=== PATIENT | male | born 1955 | race Caucasian/White ===

== ENCOUNTER 2016-03-26 13:16 | Inpatient (IN) | payer OTHER ==
[2016-03-26] MEDS ORDERED: hydrALAZINE INJ 20 MG/ML VIAL IVP STA (13:36)
[2016-03-26] MEDS ORDERED: hydrALAZINE INJ 20 MG/ML VIAL ONE (13:52)
[2016-03-26] MEDS ORDERED: ACETAMINOPHEN 325 MG TABLET PO PRN (15:47)
[2016-03-26] MEDS ORDERED: ONDANSETRON 4 MG/2 ML VIAL IVP PRN (15:47)
[2016-03-26] MEDS ORDERED: SODIUM CHLORIDE FLUSH 0.9% 10 ML SYRINGE IVP PRN (15:47)
[2016-03-26] MEDS ORDERED: PROPOFOL 1000 MG/100 ML 100 ML IV ONE (15:58)
[2016-03-26] MEDS ORDERED: DIPHENHYDRAMINE IV SCH (16:00)
[2016-03-26] MEDS ORDERED: SODIUM CHLORIDE 0.9% IV SCH (16:00)
[2016-03-26] MEDS ORDERED: IPRATROPIUM/ALBUTEROL 3 ML NEB INH PRN (16:42)
[2016-03-26] MEDS: methylPREDNISolone SUCCINATE 125 MG/2 ML VIAL IVP SCH ×2 (16:54→22:18)
[2016-03-26] MEDS: diphenhydrAMINE INJ 50 MG/ML VIAL IVP SCH ×2 (16:54→23:59)
[2016-03-26] MEDS ORDERED: DEXTROSE GEL 37.5 GM TUBE PO PRN (16:56)
[2016-03-26] MEDS ORDERED: DEXTROSE 50% ABBOJECT 25 GM/50 ML SYRINGE IVP PRN (16:56)
[2016-03-26] MEDS ORDERED: GLUCAGON 1 MG/ML VIAL SUBQ PRN (16:56)
[2016-03-26] MEDS ORDERED: DEXTROSE 5% 1,000 ML IV PRN (16:56)
[2016-03-26] MEDS: PROPOFOL 1000 MG/100 ML 100 ML IV SCH ×4 (16:59→22:35)
[2016-03-26] MEDS: MORPHINE 2 MG/ML SYRINGE IVP PRN (17:08)
[2016-03-26] MEDS: SODIUM CHLORIDE 0.9% 1,000 ML IV SCH (17:47)
[2016-03-26] MEDS: MIDAZOLAM 2 MG/2 ML VIAL IVP PRN ×2 (17:59→22:40)
[2016-03-26] MEDS: INSULIN REGULAR HUMAN 100 UNIT/1 ML 10 ML MDV SUBQ SCH (18:09)
[2016-03-26] MEDS ORDERED: FAMOTIDINE 20 MG in SODIUM CHLORIDE 0.9% 50 ML IV SCH (21:00)
[2016-03-26] MEDS ORDERED: INSULIN GLARGINE 300 UNIT/3 ML PEN SUBQ SCH (21:00)
[2016-03-26] MEDS: FAMOTIDINE 20 MG/50 ML 50 ML IV SCH (21:04)
[2016-03-26] MEDS: CHLORHEXIDINE GLUCONATE 15 ML UDC PO SCH (21:05)
[2016-03-26] MEDS: SODIUM CHLORIDE FLUSH 0.9% 10 ML SYRINGE IVP SCH (21:43)
[2016-03-27] MEDS: INSULIN REGULAR HUMAN 100 UNIT/1 ML 10 ML MDV SUBQ SCH ×5 (00:04→18:32)
[2016-03-27] MEDS: PROPOFOL 1000 MG/100 ML 100 ML IV SCH ×7 (01:30→23:23)
[2016-03-27] MEDS: SODIUM CHLORIDE 0.9% 1,000 ML IV SCH ×3 (01:31→19:30)
[2016-03-27] MEDS: MIDAZOLAM 2 MG/2 ML VIAL IVP PRN ×3 (02:07→06:48)
[2016-03-27] MEDS: MORPHINE 2 MG/ML SYRINGE IVP PRN ×4 (02:13→23:58)
[2016-03-27] MEDS ORDERED: PROPOFOL 1000 MG/100 ML 100 ML IV ONE (05:44)
[2016-03-27] MEDS: SODIUM CHLORIDE FLUSH 0.9% 10 ML SYRINGE IVP SCH ×3 (06:19→21:34)
[2016-03-27] MEDS: methylPREDNISolone SUCCINATE 125 MG/2 ML VIAL IVP SCH ×3 (06:29→22:15)
[2016-03-27] MEDS: PANTOPRAZOLE 40 MG VIAL IVP SCH (06:29)
[2016-03-27] MEDS: diphenhydrAMINE INJ 50 MG/ML VIAL IVP SCH ×2 (07:56→17:22)
[2016-03-27] MEDS ORDERED: MAGNESIUM SULFATE 2 GRAM 50 ML IV ONE ×2 (08:07→23:19)
[2016-03-27] MEDS: CHLORHEXIDINE GLUCONATE 15 ML UDC PO SCH ×2 (09:00→20:59)
[2016-03-27] MEDS: FAMOTIDINE 20 MG/50 ML 50 ML IV SCH ×2 (09:18→20:59)
[2016-03-27] MEDS: ENOXAPARIN 40 MG/0.4 ML SYRINGE SUBQ SCH (09:18)
[2016-03-27] MEDS: POLYETHYLENE GLYCOL 3350 17 GM PACKET PO SCH (09:31)
[2016-03-27] MEDS ORDERED: INSULIN GLARGINE 300 UNIT/3 ML PEN SUBQ SCH (21:00)
[2016-03-27] MEDS ORDERED: POTASSIUM PHOSPHATE 21 MMOL in SODIUM CHLORIDE 0.9% 250 ML IV ONE ×2 (23:19→23:50)
[2016-03-27] MEDS ORDERED: POTASSIUM PHOSPHATE 15 MMOL in SODIUM CHLORIDE 0.9% 250 ML IV ONE ×2 (23:19→23:50)
[2016-03-27] MEDS ORDERED: NEUTRA-PHOS 250 MG TABLET PO SCH (23:45)
[2016-03-27] MEDS ORDERED: POTASSIUM CHLORIDE 20 MEQ TABLET PO SCH (23:45)
[2016-03-27] MEDS ORDERED: POTASSIUM CHLOR 10 MEQ/100 ML 100 ML IV SCH ×3 (23:45)
[2016-03-28] MEDS: diphenhydrAMINE INJ 50 MG/ML VIAL IVP SCH ×2 (00:33→08:45)
[2016-03-28] MEDS: INSULIN REGULAR HUMAN 100 UNIT/1 ML 10 ML MDV SUBQ SCH (00:34)
[2016-03-28] MEDS: POTASSIUM PHOSPHATE 21 MMOL in SODIUM CHLORIDE 0.9% 250 ML IV SCH ×2 (02:42→02:43)
[2016-03-28] MEDS: PROPOFOL 1000 MG/100 ML 100 ML IV SCH ×2 (02:44→06:18)
[2016-03-28] MEDS: SODIUM CHLORIDE 0.9% 1,000 ML IV SCH (03:50)
[2016-03-28] MEDS ORDERED: INSULIN REGULAR HUMAN 100 UNIT/1 ML 10 ML MDV SUBQ SCH ×2 (06:00)
[2016-03-28] MEDS: PANTOPRAZOLE 40 MG VIAL IVP SCH (06:05)
[2016-03-28] MEDS: SODIUM CHLORIDE FLUSH 0.9% 10 ML SYRINGE IVP SCH (06:05)
[2016-03-28] MEDS: methylPREDNISolone SUCCINATE 125 MG/2 ML VIAL IVP SCH (06:05)
[2016-03-28] MEDS: FAMOTIDINE 20 MG/50 ML 50 ML IV SCH (08:46)
[2016-03-28] MEDS: CHLORHEXIDINE GLUCONATE 15 ML UDC PO SCH (08:46)
[2016-03-28] MEDS: ENOXAPARIN 40 MG/0.4 ML SYRINGE SUBQ SCH (09:35)
[2016-03-28] MEDS: POLYETHYLENE GLYCOL 3350 17 GM PACKET PO SCH (09:39)
== END 2016-03-28 12:19 | disposition home or self-care (01) | DRG 916 ==
PROC: 5A1945Z Respiratory Ventilation, 24-96 Consecutive Hours (ICD-10-PCS; principal; 2016-03-26)
PROC: 0BH17EZ Insertion of Endotracheal Airway into Trachea, Via Natural or Artificial Opening (ICD-10-PCS; principal; 2016-03-26)
PROC: 30233K1 Transfusion of Nonautologous Frozen Plasma into Peripheral Vein, Percutaneous Approach (ICD-10-PCS; principal; 2016-03-26)
DX: T78.3XXA Angioneurotic edema, initial encounter (principal); D62 Acute posthemorrhagic anemia; T46.4X5A Adverse effect of angiotensin-converting-enzyme inhibitors, initial encounter; I10 Essential (primary) hypertension; E11.65 Type 2 diabetes mellitus with hyperglycemia; E78.5 Hyperlipidemia, unspecified; G47.33 Obstructive sleep apnea (adult) (pediatric); Z79.4 Long term (current) use of insulin; Z79.82 Long term (current) use of aspirin; Z78.1 Physical restraint status; Z87.01 Personal history of pneumonia (recurrent)

== ENCOUNTER 2016-09-09 23:56 | Emergency (ER) | payer OTHER ==
--- NOTE | 2016-09-10 00:45 | ED Physician Documentation ---
PD HPI DYSPNEA - Stated complaint Stated Complaint: DIFF BREATHING - Chief complaint Chief Complaint: Resp - History obtained from History obtained from: Patient - History of Present Illness Timing - onset: Enter time (23:30), Today Timing - details: Abrupt onset Pain level now: 0 Associated symptoms: Cough Recently seen: Not recently seen - Additional information Additional information: shortly after eating dinner, patient had sudden onset dyspnea while at rest associated with cough. Symptoms gradually but completely resolved by the time of ED presentation. Review of Systems Cardiac: reports: Reviewed and negative Respiratory: reports: Dyspnea, Cough. denies: Wheezing GI: reports: Reviewed and negative Skin: denies: Rash PD PAST MEDICAL HISTORY - Past Medical History Past Medical History: Yes Cardiovascular: Hypertension, High cholesterol Respiratory: Sleep apnea, CPAP use, Other Neuro: None Endocrine/Autoimmune: Type 2 diabetes GI: None : None HEENT: None Psych: None Musculoskeletal: None Derm: None Other Past Medical History: empyema - Past Surgical History Past Surgical History: Yes Ortho: Rotator cuff repair Cardiovascular: Other - Present Medications Home Medications: Ambulatory Orders Medication Instructions Recorded Confirmed Amlodipine Besylate [Norvasc] 10 mg PO DAILY 03/26/16 03/26/16 Aspirin [Aspir-Low] 81 mg PO DAILY 03/26/16 03/26/16 Insulin Aspart [NovoLOG] 7 units SUBQ .LUNCH,DINNER 03/26/16 03/26/16 Insulin Glargine [Lantus] 32 units SQ QPM 03/26/16 03/26/16 - Allergies Allergies/Adverse Reactions: Allergies Allergy/AdvReac Type Severity Reaction Status Date / Time lisinopril Allergy Severe RESPIRATORY Verified 09/10/16 00:03 ,ANGIOEDEMA Penicillins Allergy Unknown Verified 09/10/16 00:03 - Social History Does the pt smoke?: No Smoking Status: Never smoker Does the pt drink ETOH?: Yes Does the pt have substance abuse?: No - Immunizations Immunizations are current?: No Immunizations: TDAP >10years/unknown - POLST Patient has POLST: No PD ED PE NORMAL - Vitals Vital signs reviewed: Yes - General General: Alert and oriented X 3, No acute distress, Well developed/nourished - Cardiac Cardiac: RRR, No murmur - Respiratory Respiratory: No respiratory distress, Clear bilaterally - Derm Derm: No rash Results - Vitals Vitals: Oxygen O2 Source Room air - Rads (name of study) chest xray Radiology: Prelim report reviewed, See rad report PD MEDICAL DECISION MAKING - ED course Complexity details: reviewed results, re-evaluated patient, considered differential, d/w patient Departure - Departure Disposition: 01 Home, Self Care Clinical Impression: Dyspnea Condition: Good Instructions: ED Dyspnea Shortness of Breath Follow-Up: Sid Barton DO [Primary Care Provider] - Discharge Date/Time: 09/10/16 02:01
--- NOTE | 2016-09-10 01:33 | XRAY Preliminary Report ---
Exam: XR Chest 2 View PA/LAT IMPRESSION: No consolidation. [facility] SITE ID: [id number]
[2016-09-10 01:59] VITALS: BP 147/88
--- NOTE | 2016-09-10 12:30 | XRAY Report ---
EXAM: CHEST RADIOGRAPHY EXAM DATE: 09/10/2016 01:16 AM. CLINICAL HISTORY: Productive cough. COMPARISON: None. TECHNIQUE: 2 views. FINDINGS: Lungs/Pleura: No focal opacities evident. No pleural effusion. No pneumothorax. Normal volumes. Mediastinum: Heart and mediastinal contours are unremarkable. Other: Postoperative changes in the right rotator cuff area. IMPRESSION: No consolidation. [facility] Referring Provider Line: [phone] SITE ID: [id number]
== END 2016-09-10 02:01 | disposition home or self-care (01) ==
LOC: ED 23:56
DX: R06.00 Dyspnea, unspecified (principal); I10 Essential (primary) hypertension; E11.9 Type 2 diabetes mellitus without complications; Z79.4 Long term (current) use of insulin; Z79.82 Long term (current) use of aspirin
CPT/HCPCS: 71020; 99283

== ENCOUNTER 2017-03-09 14:28 | Outpatient (CLI) | payer OTHER | END 2017-03-09 14:29 | disposition home or self-care (01) | LOC: SC 14:28 | PROVIDERS: ATTEND Nurse Practitioner Family | DX: G47.33 Obstructive sleep apnea (adult) (pediatric) (principal) | CPT/HCPCS: 99212; 99214 ==

== ENCOUNTER 2017-04-14 11:20 | Outpatient (CLI) | payer OTHER | END 2017-04-14 11:21 | disposition home or self-care (01) | LOC: SC 11:20 | PROVIDERS: ATTEND Nurse Practitioner Family | DX: G47.33 Obstructive sleep apnea (adult) (pediatric) (principal) | CPT/HCPCS: 99212; 99214 ==

== ENCOUNTER 2017-05-16 14:58 | Outpatient (CLI) | payer OTHER | END 2017-05-16 14:59 | disposition home or self-care (01) | LOC: SC 14:58 | PROVIDERS: ATTEND Nurse Practitioner Family | DX: G47.33 Obstructive sleep apnea (adult) (pediatric) (principal) | CPT/HCPCS: 99212; 99213 ==

== ENCOUNTER 2017-09-24 07:44 | Outpatient (CLI) | payer OTHER ==
--- NOTE | 2017-09-24 17:21 | MRI Report ---
Procedure Date: 09/23/2017 Accession Number: [id number] / [id number] Procedure: MRI - Brain W/O CPT Code: FULL RESULT: EXAM: MRI BRAIN WITHOUT CONTRAST EXAM DATE: 09/23/2017 08:40 AM. CLINICAL HISTORY: Reported history of amnesia for 2 months. COMPARISON: None. TECHNIQUE: Multiplanar, multisequence T1-weighted and fluid-sensitive MR sequences of the brain were performed. Sequences optimized for routine evaluation. Other: None. IV Contrast: None. FINDINGS: Brain Volume: Normal for age. Parenchyma/Dura: No acute hemorrhage or stroke. No mass effect, midline shift or abnormal subdural fluid collection. There are numerous scattered regions of patchy and nodular abnormal T2 hyperintense signal changes involving the subcortical and deep regions of both cerebral hemispheres. White matter disease is nonspecific but likely contributed to by aging and chronic microangiopathy. Ventricles/Cisterns: No hydrocephalus. No abnormal extra-axial fluid collection or hemorrhage. Orbits: Symmetric and unremarkable. Sella Turcica: No space-occupying mass. The right side of the optic chiasm appears to be elevated by an adjacent arterial loop. IAC: No evidence for a space-occupying mass or asymmetry allowing for the inherent limitations of noncontrast imaging technique. Vasculature: Normal signal flow void is seen in the major arterial structures at the skull base. Sinuses: Mild paranasal sinus mucosal thickening. No air-fluid level. Clear mastoids. Bones: No focal pathologic appearing marrow signal changes. Other: 6 mm midline round fluid signal structure in the upper posterior nasopharynx consistent with a small cyst. IMPRESSION: 1. No acute hemorrhage or stroke. 2. Mild diffuse atrophy. 3. Multifocal mild to moderate cerebral white matter T2 hyperintense signal changes, likely contributed to by aging and chronic microangiopathy. 4. Mild paranasal sinus mucosal thickening. [facility]
== END 2017-09-24 07:45 | disposition home or self-care (01) ==
LOC: DI 07:44
PROVIDERS: ATTEND Internal Medicine
DX: R41.3 Other amnesia (principal); G31.9 Degenerative disease of nervous system, unspecified
CPT/HCPCS: 70551